=== PATIENT | female | born 1945 | race Caucasian/White ===

== ENCOUNTER 2017-04-03 10:15 | Outpatient (RCR) | payer OTHER | END 2017-04-07 | disposition home or self-care (01) | LOC: PTY 10:15 | DX: M51.36 Other intervertebral disc degeneration, lumbar region (principal); M48.061 Spinal stenosis, lumbar region without neurogenic claudication; Z85.42 Personal history of malignant neoplasm of other parts of uterus ==

== ENCOUNTER 2017-04-27 14:30 | Outpatient (RCR) | payer OTHER | END 2017-05-07 | disposition home or self-care (01) | LOC: PTY 14:30 | DX: M51.36 Other intervertebral disc degeneration, lumbar region (principal); M48.061 Spinal stenosis, lumbar region without neurogenic claudication | CPT/HCPCS: 97110; 97140; G0283 ==

== ENCOUNTER 2017-05-04 14:30 | Outpatient (RCR) | payer OTHER | END 2017-05-07 | disposition home or self-care (01) | LOC: PTY 14:30 | DX: M51.36 Other intervertebral disc degeneration, lumbar region (principal); M48.061 Spinal stenosis, lumbar region without neurogenic claudication; M54.2 Cervicalgia | CPT/HCPCS: 97110; 97140; 97162; G0283 ==

== ENCOUNTER 2017-05-22 13:45 | Outpatient (RCR) | payer OTHER | END 2017-06-07 | disposition home or self-care (01) | LOC: PTY 13:45 | DX: M51.36 Other intervertebral disc degeneration, lumbar region (principal); M48.061 Spinal stenosis, lumbar region without neurogenic claudication | CPT/HCPCS: 97110; 97140; G0283 ==

== ENCOUNTER 2017-05-25 14:30 | Outpatient (RCR) | payer OTHER | END 2017-06-07 | disposition home or self-care (01) | LOC: PTY 14:30 | DX: M51.36 Other intervertebral disc degeneration, lumbar region (principal); M48.061 Spinal stenosis, lumbar region without neurogenic claudication; M54.2 Cervicalgia | CPT/HCPCS: 97110; 97140; G0283 ==

== ENCOUNTER 2017-06-17 13:59 | Outpatient (RCR) | payer OTHER | END 2017-07-08 | disposition home or self-care (01) | LOC: PTY 13:59 | DX: M51.36 Other intervertebral disc degeneration, lumbar region (principal); M48.061 Spinal stenosis, lumbar region without neurogenic claudication; M54.2 Cervicalgia | CPT/HCPCS: 97110; 97140; G0283 ==

== ENCOUNTER 2017-06-19 11:15 | Outpatient (RCR) | payer OTHER | END 2017-07-08 | disposition home or self-care (01) | LOC: PTY 11:15 | DX: M51.36 Other intervertebral disc degeneration, lumbar region (principal); M48.061 Spinal stenosis, lumbar region without neurogenic claudication | CPT/HCPCS: 97110; 97140; G0283 ==

== ENCOUNTER 2017-07-14 11:00 | Outpatient (RCR) | payer OTHER | END 2017-08-05 | disposition home or self-care (01) | LOC: PTY 11:00 | DX: M51.36 Other intervertebral disc degeneration, lumbar region (principal); M48.061 Spinal stenosis, lumbar region without neurogenic claudication; M54.2 Cervicalgia | CPT/HCPCS: 97110; G0283 ==

== ENCOUNTER 2017-07-16 11:15 | Outpatient (RCR) | payer OTHER | END 2017-08-05 | disposition home or self-care (01) | LOC: PTY 11:15 | DX: M51.36 Other intervertebral disc degeneration, lumbar region (principal); M48.061 Spinal stenosis, lumbar region without neurogenic claudication; M54.2 Cervicalgia | CPT/HCPCS: 97110; G0283 ==

== ENCOUNTER 2017-08-18 11:15 | Outpatient (RCR) | payer OTHER | END 2017-09-05 | disposition home or self-care (01) | LOC: PTY 11:15 | DX: M51.36 Other intervertebral disc degeneration, lumbar region (principal) | CPT/HCPCS: 97110; G0283 ==